=== PATIENT | female | born 1955 | race Hispanic/Latino ===

== ENCOUNTER 2017-07-22 08:23 | Observation (INO) | payer BC, SELFPAY ==
[2017-07-22] MEDS ORDERED: Fentanyl 100 MCG/2 ML VIAL ONE (09:58)
[2017-07-22 10:03] LABS: #Eosinphils 0.2 thou/uL (0.0-0.7); #Lymphocytes 1.6 thou/uL (1.20-3.40); #Monocytes 0.3 thou/uL (0.11-0.59); #Neutrophils 2.4 thou/uL (1.40-6.50); %Basophils 0.3 % (0.0-1.0); %Eosinophils 5.1 % (0.0-10.0); %Lymphocytes 35.3 % (21.0-51.0); %Monocytes 5.5 % (0.0-10.0); %Neutrophils 53.8 % (42.0-75.0); Hemoglobin 12.2 g/dL (12.0-16.0); Mean Corpuscular HGB CONC 32.7 g/dL (32.0-36.0); Mean Corpuscular Hemoglobin 27.9 pg (27.0-31.0); Mean Corpuscular Volume 85.3 fl (81.0-99.0); Mean Platelet Volume 6.6 fL (7.4-10.4); Platelet Count 147 thou/uL (130-400); RBC Distribution Width 13.4 % (11.5-14.5); Red Blood Cell (RBC) Count 4.37 mill/uL (4.20-5.40); White Blood Cell (WBC) Count 4.5 thou/uL (4.8-10.8)
--- NOTE | 2017-07-22 10:10 | RAD ---
UPRIGHT PORTABLE CHEST ONE VIEW: History: 62-year-old female with history of chest pain. The chest is tender to the touch. Comparison: 09-19-16 FINDINGS: Heart size is within normal limits. Atherosclerosis of the aorta. Some very mild increased linear and interstitial markings, stable. No confluent pneumonia, overt edema, or pleural effusion. IMPRESSION: Very mild stable chronic changes. No acute intrathoracic disease. POS: [facility]
[2017-07-22 10:15] LABS: Prothrombin Time 13.7 SEC (12.0-14.7)
[2017-07-22 10:17] LABS: D-Dimer Test 0.38 *mcg/mL (0.27-0.43)
[2017-07-22 10:22] LABS: ALT (SGPT) 17 U/L (8-55); AST (SGOT) 18 U/L (5-34); Alkaline Phosphatase 103 U/L (40-150); Anion Gap 8 mmol/L (10-20); BUN (Urea Nitrogen) 15 mg/dL (9.8-20.1); Bilirubin, Total 0.3 mg/dL (0.2-1.2); CK (CPK) 53 U/L (29-168); Calc. Creatinine Clearance 0 mL/min (70-130); Calcium 9.5 mg/dL (7.8-10.44); Carbon Dioxide 29 mmol/L (22-29); Chloride 105 mmol/L (98-107); Estimated GFR-MDRD 79; Globulin 3.3 g/dL (2.4-3.5); Glucose 100 mg/dL (70-105); Potassium 4.4 mmol/L (3.5-5.1); Protein, Total 7.3 g/dL (6.0-8.3); Sodium 138 mmol/L (136-145)
[2017-07-22 10:23] LABS: CKMB 1.4 ng/mL (0-6.6); Troponin I 0.012 ng/mL (< 0.028)
[2017-07-22] MEDS ORDERED: Nitroglycerin 0.4 MG TAB (25 Tab Bottle) ONE (12:52)
[2017-07-22] MEDS ORDERED: HumaLOG 300 UNITS/3 ML VIAL SC PRN (13:02)
[2017-07-22] MEDS ORDERED: Dextrose 5% in Water 1,000 ML IV PRN (13:02)
[2017-07-22] MEDS ORDERED: Dextrose 50% Abboject 50 ML SYRINGE SLOW IVP PRN (13:02)
[2017-07-22] MEDS ORDERED: Acetaminophen 325 MG TAB PO PRN (13:04)
[2017-07-22] MEDS ORDERED: Milk Of Magnesia 30 ML UDCUP PO PRN (13:04)
[2017-07-22 13:54] LABS: Troponin I 0.015 ng/mL (< 0.028)
[2017-07-22] MEDS ORDERED: Ketorolac Tromethamine 30 MG/ML VIAL IVP SCH (14:30)
[2017-07-22] MEDS: Nitroglycerin 0.4 MG TAB (25 Tab Bottle) PO PRN (15:04)
[2017-07-22] MEDS: Ketorolac Tromethamine 30 MG/ML VIAL IVP SCH ×2 (15:08→20:26)
[2017-07-22 15:14] VITALS: BMI 41.8
[2017-07-22 16:55] LABS: Troponin I 0.015 ng/mL (< 0.028)
[2017-07-22] MEDS ORDERED: glipiZIDE 5 MG TAB PO SCH (17:00)
[2017-07-22] MEDS ORDERED: metFORMIN 500 MG TAB PO SCH (17:00)
[2017-07-22] MEDS: Heparin 5,000 UNITS/ML VIAL SC SCH ×2 (17:01→20:32)
[2017-07-22] MEDS: Gabapentin 300 MG CAP PO SCH (20:31)
[2017-07-22] MEDS: Famotidine 20 MG TAB PO SCH (20:32)
[2017-07-22] MEDS: Docusate 100 MG CAP PO SCH (20:32)
--- NOTE | 2017-07-22 21:55 | HP ---
PRIMARY CARE PHYSICIAN: [facility]. PRESENTING COMPLAINT: Left arm pain. HISTORY OF PRESENT ILLNESS: A 62-year-old female with a past medical history of type 2 diabetes mellitus, hypertension, hyperlipidemia, GERD who presents to the emergency room with complaints of left arm pain, which started last night after she was sleeping. She rates it as a constant 10/10 pain, which started from the wrist and eventually involved her whole arm associated with numbness and tingling aggravated by movement and decreased temporarily by Motrin. She denies chest pain, but reports she has some "prickly" in her chest which she has had intermittently for the past 6 months and usually lasts about 5 minutes and dissipated spontaneously. She reports a stress test in the past as well as a cardiac catheterization by Dr. Jimenez, but does not know the results. There is no history of fevers, chills, nausea, vomiting, or diarrhea. She has no urinary symptoms. She denies shortness of breath, cough, or trauma to the arm. PAST MEDICAL HISTORY: Diabetes mellitus type 2, hypertension, hyperlipidemia, GERD. PAST SURGICAL HISTORY: Hysterectomy, left nephrectomy secondary to renal carcinoma. FAMILY HISTORY: Father had a history of hypertension, diabetes, and CABG. He from an [place]. Mother had a history of hypertension and diabetes as well. SOCIAL HISTORY: Does not drink alcohol, smoke cigarettes or use illicit drugs. ALLERGIES: MORPHINE. REVIEW OF SYSTEMS: General: Negative. HEENT: Negative. CVS: Negative. Respiratory: Negative. Abdomen: Negative. : Negative. Musculoskeletal: Per HPI, positive for musculoskeletal pain in left arm and wrist. Skin: Denies rashes or lesions. Neurologic: Negative. Hematologic: Negative. Allergy/immunology: Negative. PHYSICAL EXAMINATION: VITAL SIGNS: Stable. GENERAL: Not in mild distress from pain in the left arm. HEENT: Normocephalic, atraumatic. Not pale, anicteric. PERRLA, EOMI. Moist mucous membranes. NECK: Supple. Slight tenderness around the left shoulder from moving the neck. CARDIOVASCULAR: Regular rate and rhythm, S1 and S2 only. No murmurs, rubs, or gallops. RESPIRATORY: Vesicular breath sounds bilaterally. No wheezes or rales. ABDOMEN: Positive bowel sounds, nontender, nondistended, no organomegaly. MUSCULOSKELETAL: Tenderness on palpation of the left arm and forearm as well as the wrist, limited range of movement due to pain, reproducible chest pain on palpation. SKIN: Warm, dry, well-perfused. NEUROLOGIC: Alert and well oriented. No focal deficits. PSYCHIATRIC: Normal mood and affect. LABORATORY DATA: CBC is largely unremarkable. Chemistry unremarkable as well. Troponin trended and negative x3. EKG normal sinus rhythm. Chest x-ray no acute pathology. ASSESSMENT/PLAN: 1. Left shoulder pain, acute and left wrist pain: This is likely musculoskeletal pain and unlikely due to atypical presentation of acute coronary syndrome; however, due to her significant comorbidities, she will be ruled out. Monitor on tele. Nitroglycerin p.r.n. daily aspirin as well. We will consider Cardiology consult if pain does not dissipate with control of pain. We will also give Toradol and other anti-inflammatories to control pain and reassess. 2. Type 2 diabetes mellitus: She takes glipizide and metformin; however, her blood glucoses are running on the low side, so we will hold oral hypoglycemics. Check fingerstick glucose before meals and at bedtime and put on sliding scale insulin. 3. Hypertension, controlled and at goal, resume home regimen. 4. Hyperlipidemia. We will resume on statin. CODE STATUS: FULL CODE. MTDD
[2017-07-22] MEDS ORDERED: hydrALAZINE 20 MG/ML VIAL SLOW IVP PRN (23:55)
[2017-07-23] MEDS ORDERED: Ibuprofen 800 MG TAB PO PRN (03:00)
[2017-07-23 04:32] LABS: #Eosinphils 0.2 thou/uL (0.0-0.7); #Lymphocytes 1.7 thou/uL (1.20-3.40); #Monocytes 0.2 thou/uL (0.11-0.59); #Neutrophils 2.7 thou/uL (1.40-6.50); %Basophils 0.6 % (0.0-1.0); %Eosinophils 4.9 % (0.0-10.0); %Monocytes 4.6 % (0.0-10.0); Hemoglobin 11.8 g/dL (12.0-16.0); Mean Corpuscular HGB CONC 33.3 g/dL (32.0-36.0); Mean Corpuscular Hemoglobin 28.3 pg (27.0-31.0); Mean Corpuscular Volume 84.8 fl (81.0-99.0); Mean Platelet Volume 6.8 fL (7.4-10.4); Platelet Count 141 thou/uL (130-400); RBC Distribution Width 13.4 % (11.5-14.5); Red Blood Cell (RBC) Count 4.17 mill/uL (4.20-5.40); White Blood Cell (WBC) Count 4.8 thou/uL (4.8-10.8)
[2017-07-23 04:38] LABS: Hemoglobin A1c 5.1 % (4.0-6.0)
[2017-07-23 04:44] LABS: Anion Gap 7 mmol/L (10-20); BUN (Urea Nitrogen) 15 mg/dL (9.8-20.1); Calc. Creatinine Clearance 148 mL/min (70-130); Calcium 9.2 mg/dL (7.8-10.44); Carbon Dioxide 29 mmol/L (22-29); Cardiac Risk 4.2 (Less than 4.5); Chloride 105 mmol/L (98-107); Cholesterol 134 mg/dl (< 200 Desired); Estimated GFR-MDRD 81; Glucose 99 mg/dL (70-105); HDL Cholesterol 32 mg/dL (>60 Neg Risk); LDL Cholesterol, Calculated 75 mg/dL; Potassium 4.1 mmol/L (3.5-5.1); Sodium 137 mmol/L (136-145); Triglycerides 134 mg/dL (Less than 150)
[2017-07-23] MEDS: Nitroglycerin 0.4 MG TAB (25 Tab Bottle) PO PRN (06:32)
[2017-07-23] MEDS ORDERED: glipiZIDE 5 MG TAB PO SCH (07:30)
[2017-07-23 08:08] VITALS: BP 145/65; TEMP 98.2
[2017-07-23] MEDS: Gabapentin 300 MG CAP PO SCH (08:52)
[2017-07-23] MEDS: Famotidine 20 MG TAB PO SCH (08:52)
[2017-07-23] MEDS: Docusate 100 MG CAP PO SCH (08:52)
[2017-07-23] MEDS: Heparin 5,000 UNITS/ML VIAL SC SCH (08:53)
[2017-07-23] MEDS ORDERED: Lisinopril 20 MG TAB PO SCH (09:00)
[2017-07-23] MEDS ORDERED: Atorvastatin Calcium 40 MG TAB PO SCH (09:00)
--- NOTE | 2017-07-23 11:01 | DIS ---
DATE OF ADMISSION: 07/22/2017 DATE OF DISCHARGE: 07/23/2017 DISCHARGE DIAGNOSES: 1. Left shoulder pain, musculoskeletal in origin. 2. Diabetes mellitus type 2, stable. 3. Hypertension, stable. 4. Hyperlipidemia. 5. Degenerative joint disease. CONSULTATIONS: None. PERTINENT LABORATORY AND X-RAY FINDINGS: Basic metabolic profile within normal limits. Hemoglobin A 1c 5.1. Total cholesterol 134, triglycerides 134, HDL 32, LDL 75. CBC within normal limits. Portab le chest x-ray dated 07/22/2017 showed no acute cardiopulmonary process. HOSPITAL COURSE: Patient was observed on the telemetry unit after presenting with left shoulder pain with initial concern for possible anginal equivalent. Patient underwent serial troponins which were negative x3. Telemetry monitoring showed no evidence of acute arrhythmia or dysrhythmia and patient received anti-inflammatory medication including Motrin with relief of symptoms. No current evidence to suggest cardiac etiology of presentation and likely patient's pain related to musculoskeletal m[place] and degenerative joint disease. Current recommendations are for supportive management, over-the- counter anti-inflammatories and heat therapy. Overall, patient clinically stable and ready for disch arge on 07/23/2017. DISCHARGE MEDICATIONS: 1. Lipitor 40 mg p.o. daily. 2. Gabapentin 600 mg p.o. b.i.d. 3. Glipizide 10 mg p.o. q.a.m. and 5 mg p.o. at bedtime. 4. Zestril 20 mg p.o. daily. 5. Metformin 1000 mg p.o. b.i.d. 6. Ranitidine 150 mg p.o. b.i.d. 7. Zoloft 100 mg p.o. daily. FOLLOWUP: Patient will follow up with [facility] within 7 days. CONDITION ON DISCHARGE: Stable. ACTIVITY: Ad venkatesh. DIET: Heart healthy and ADA. CODE STATUS: FULL. DISPOSITION: Home, 07/23/2017.
== END 2017-07-23 10:39 | disposition home or self-care (01) ==
LOC: ERS 08:23 → 2SW 12:55
PROVIDERS: ADMIT Internal Medicine; ATTEND Internal Medicine
DX: M25.512 Pain in left shoulder (principal); M25.532 Pain in left wrist; E11.9 Type 2 diabetes mellitus without complications; I10 Essential (primary) hypertension; E78.5 Hyperlipidemia, unspecified; M19.90 Unspecified osteoarthritis, unspecified site; K21.9 Gastro-esophageal reflux disease without esophagitis; Z88.5 Allergy status to narcotic agent; Z82.49 Family history of ischemic heart disease and other diseases of the circulatory system; Z83.3 Family history of diabetes mellitus
CPT/HCPCS: 36415; 36416; 71045; 80048; 80053; 80061; 82553; 83036; 84484; 85025; 85379; 85610; 93005; 94760; 96361; 96374; 96375; 96376; G0378; J0360; J1644; J1885; J3010

== ENCOUNTER 2018-04-21 11:37 | Outpatient (CLI) | payer OTHER ==
--- NOTE | 2018-04-21 13:22 | RAD ---
LUMBAR SPINE TWO VIEWS: History: Low back pain. Comparison: 04-18-11 FINDINGS: There are five lumbar type vertebrae. Pedicles are intact. Vertebral body heights are maintained. Gra de I spondylolisthesis at the L4-5 level has progressed slightly since the previous exam. Bulky osteo phytosis throughout the vertebral bodies and facets. Posterior elements are absent at the L4 level. N o acute fracture or dislocation. IMPRESSION: 1. Prominent degenerative changes lumbar spine. No evidence of compression fracture. 2. Presumed operative posterior decompression at the L4 level. POS: [facility]
== END 2018-04-21 11:38 | disposition home or self-care (01) ==
LOC: BICRAD 11:37
PROVIDERS: ATTEND Internal Medicine
DX: Z02.71 Encounter for disability determination (principal); M47.816 Spondylosis without myelopathy or radiculopathy, lumbar region
CPT/HCPCS: 72100

== ENCOUNTER 2018-10-05 17:06 | Emergency (ER) | payer SELFPAY ==
--- NOTE | 2018-10-05 17:59 | RAD ---
XR Chest Pa Lat STANDARD History: [Cough] Comparison: Radiograph July 22, 2017 Findings: Some scarring in the lingula. No pneumothorax. No effusion. No airspace consolidation. No a cute osseous abnormality. Advanced degenerative changes of the right glenohumeral joint in both acromioclavicular joints. Impression: Chronic findings. No acute intrathoracic abnormality.
[2018-10-05] MEDS ORDERED: Ketorolac Tromethamine 30 MG/ML VIAL ONE (18:41)
[2018-10-05] MEDS ORDERED: Dexamethasone 4 MG TAB ONE (18:41)
== END 2018-10-05 20:01 | disposition home or self-care (01) ==
LOC: ERS 17:06
DX: J20.9 Acute bronchitis, unspecified (principal); E11.9 Type 2 diabetes mellitus without complications; I10 Essential (primary) hypertension; Z85.528 Personal history of other malignant neoplasm of kidney; F41.9 Anxiety disorder, unspecified; F32.9 Major depressive disorder, single episode, unspecified; Z87.891 Personal history of nicotine dependence
CPT/HCPCS: 71046; 94640; 96372; J1885; J7620; J8540

== ENCOUNTER 2018-10-25 09:23 | Emergency (ER) | payer SELFPAY ==
[2018-10-25] MEDS ORDERED: Lorazepam 2 MG/ML VIAL ONE (09:38)
[2018-10-25 09:45] LABS: #Eosinphils 0.2 thou/uL (0.0-0.7); #Lymphocytes 1.7 thou/uL (1.20-3.40); #Monocytes 0.2 thou/uL (0.11-0.59); #Neutrophils 3.2 thou/uL (1.40-6.50); %Basophils 0.1 % (0.0-1.0); %Eosinophils 3.5 % (0.0-10.0); %Lymphocytes 32.3 % (21.0-51.0); %Monocytes 3.7 % (0.0-10.0); %Neutrophils 60.4 % (42.0-75.0); Hemoglobin 12.1 g/dL (12.0-16.0); Mean Corpuscular HGB CONC 33.7 g/dL (32.0-36.0); Mean Corpuscular Hemoglobin 27.9 pg (27.0-31.0); Mean Corpuscular Volume 82.9 fL (78.0-98.0); Mean Platelet Volume 7.6 fL (7.4-10.4); Platelet Count 146 thou/uL (130-400); RBC Distribution Width 14.1 % (11.5-14.5); Red Blood Cell (RBC) Count 4.34 mill/uL (4.20-5.40); White Blood Cell (WBC) Count 5.3 thou/uL (4.8-10.8)
--- NOTE | 2018-10-25 10:00 | RAD ---
PORTABLE CHEST 1 VIEW: DATE: 10/25/2018. TIME: 9:44 a.m. HISTORY: Dyspnea. FINDINGS: Comparison is made with the exam of 10/05/2018. The heart size is normal. The lungs are expanded without focal areas of consolidation, pneumothorace s, or pleural effusions. Minimal chronic changes are again seen. IMPRESSION: No acute process. POS: [facility]
[2018-10-25 10:07] LABS: ALT (SGPT) 40 U/L (8-55); AST (SGOT) 31 U/L (5-34); Albumin 3.9 g/dL (3.4-4.8); Alkaline Phosphatase 130 U/L (40-150); Anion Gap 15 mmol/L (10-20); BUN (Urea Nitrogen) 10 mg/dL (9.8-20.1); Bilirubin, Total 0.7 mg/dL (0.2-1.2); Calc. Creatinine Clearance 0 mL/min (70-130); Calcium 9.7 mg/dL (7.8-10.44); Carbon Dioxide 22 mmol/L (23-31); Chloride 102 mmol/L (98-107); Estimated GFR-MDRD 71; Globulin 3.6 g/dL (2.4-3.5); Glucose 294 mg/dL (80-115); Potassium 4.2 mmol/L (3.5-5.1); Protein, Total 7.5 g/dL (6.0-8.3); Sodium 135 mmol/L (136-145)
--- NOTE | 2018-10-25 10:32 | CT ---
CT arteriogram chest with IV contrast and 3-D imaging HISTORY: Chest pain. Dyspnea. COMPARISON: 09/20/2016. FINDINGS: There is good contrast opacification pulmonary arteries and thoracic aorta with normal bran lexi of the great vessels at the aortic arch. Very mild patchy areas of groundglass opacity at the dependent portion of each lung are similar in appearance to the previous exam and may reflect atelect asis. No lobar consolidation, pleural fluid, or mediastinal adenopathy. Mild calcification within the aortic arch. Small hiatal hernia. IMPRESSION: No CT evidence of pulmonary embolus
[2018-10-25] MEDS ORDERED: Ketorolac Tromethamine 30 MG/ML VIAL ONE (10:44)
[2018-10-25] MEDS ORDERED: ISOVUE-370 76%-LOCM 1 ML ONE (16:10)
== END 2018-10-25 11:01 | disposition home or self-care (01) ==
LOC: ERS 09:23
DX: R06.02 Shortness of breath (principal); R51 Headache; E11.9 Type 2 diabetes mellitus without complications; I10 Essential (primary) hypertension; F41.9 Anxiety disorder, unspecified; F32.9 Major depressive disorder, single episode, unspecified; Z87.891 Personal history of nicotine dependence; Z79.84 Long term (current) use of oral hypoglycemic drugs; Z79.899 Other long term (current) drug therapy
CPT/HCPCS: 71045; 71275; 80053; 83880; 84484; 85025; 85379; 93005; 96374; 96375; J1885; J2060; Q9966

== ENCOUNTER 2019-01-03 17:44 | Emergency (ER) | payer SELFPAY ==
[2019-01-03 18:26] LABS: #Eosinphils 0.2 thou/uL (0.0-0.7); #Lymphocytes 2.1 thou/uL (1.20-3.40); #Monocytes 0.4 thou/uL (0.11-0.59); #Neutrophils 4.7 thou/uL (1.40-6.50); %Basophils 0.4 % (0.0-1.0); %Eosinophils 2.8 % (0.0-10.0); %Lymphocytes 27.8 % (21.0-51.0); %Monocytes 5.1 % (0.0-10.0); %Neutrophils 63.9 % (42.0-75.0); Hemoglobin 12.8 g/dL (12.0-16.0); Mean Corpuscular HGB CONC 33.1 g/dL (32.0-36.0); Mean Corpuscular Hemoglobin 26.7 pg (27.0-31.0); Mean Corpuscular Volume 80.6 fL (78.0-98.0); Mean Platelet Volume 6.9 fL (7.4-10.4); Platelet Count 159 thou/uL (130-400); RBC Distribution Width 13.4 % (11.5-14.5); Red Blood Cell (RBC) Count 4.81 mill/uL (4.20-5.40); White Blood Cell (WBC) Count 7.4 thou/uL (4.8-10.8)
[2019-01-03 18:53] LABS: ALT (SGPT) 29 U/L (8-55); AST (SGOT) 23 U/L (5-34); Albumin 3.8 g/dL (3.4-4.8); Alkaline Phosphatase 144 U/L (40-150); Anion Gap 9 mmol/L (10-20); BUN (Urea Nitrogen) 13 mg/dL (9.8-20.1); Bilirubin, Total 0.4 mg/dL (0.2-1.2); Calc. Creatinine Clearance 0 mL/min (70-130); Calcium 9.5 mg/dL (7.8-10.44); Carbon Dioxide 27 mmol/L (23-31); Chloride 99 mmol/L (98-107); Estimated GFR-MDRD 72; Globulin 3.2 g/dL (2.4-3.5); Glucose 333 mg/dL (80-115); Lipase 29 U/L (8-78); Potassium 4.2 mmol/L (3.5-5.1); Sodium 131 mmol/L (136-145)
[2019-01-03 19:02] LABS: Bilirubin Negative (Negative); Blood, Urine Negative (Negative); Clarity Clear (Clear); Glucose, Urine (Dipstick) Greater than 1000 mg/dL (Negative); Leukocyte 25 Leu/uL (Negative); Nitrite Negative (Negative); Protein, Urine (Dipstick) Negative (Neg-Trace); RBC/HPF 0-3 HPF (0-3); Squamous Epithelial 0-3 HPF (0-3); Urobilinogen Normal mg/dL (Less than 2); WBC/HPF 0-3 HPF (0-3)
[2019-01-03 19:17] LABS: Bacteria/HPF 1+ HPF (None Seen)
[2019-01-03] MEDS ORDERED: HYDROcodone/Acetaminophen 5/325 mg Tablet ONE (20:35)
[2019-01-03] MEDS ORDERED: Ketorolac Tromethamine 60 MG/2 ML VIAL ONE (20:35)
--- NOTE | 2019-01-03 21:36 | CT ---
CT ABDOMEN AND PELVIS WITHOUT IV CONTRAST: Indications: Left flank pain. Comparison: 10-03-15 CT abdomen/pelvis. FINDINGS: Lung bases appear clear. Liver, spleen, and pancreas unremarkable. Stomach and duodenum unremarkable. Adrenal glands normal. Patient is post right nephrectomy which is previously described. Left kidney is unremarkable. No hydr onephrosis. Left ureter normal. Urinary bladder unremarkable. Small bowel loops normal caliber. Appendix appears normal. Colon unremarkable. Aorta normal caliber. No adenopathy, mass or free fluid. IMPRESSION: No acute process identified. POS: [facility]
== END 2019-01-03 21:12 | disposition home or self-care (01) ==
LOC: ERS 17:44
DX: R10.9 Unspecified abdominal pain (principal); E11.9 Type 2 diabetes mellitus without complications; I10 Essential (primary) hypertension; F41.9 Anxiety disorder, unspecified; F32.9 Major depressive disorder, single episode, unspecified; Z87.891 Personal history of nicotine dependence; Z79.899 Other long term (current) drug therapy; Z79.84 Long term (current) use of oral hypoglycemic drugs
CPT/HCPCS: 36415; 74176; 80053; 81003; 81015; 83690; 85025; 96372; J1885

== ENCOUNTER 2019-03-17 17:11 | Emergency (ER) | payer SELFPAY ==
[2019-03-17 18:09] LABS: #Basophils 0.1 thou/uL (0.0-0.2); #Eosinphils 0.2 thou/uL (0.0-0.7); #Lymphocytes 2.2 thou/uL (1.20-3.40); #Monocytes 0.3 thou/uL (0.11-0.59); #Neutrophils 4.1 thou/uL (1.40-6.50); %Basophils 0.9 % (0.0-1.0); %Eosinophils 2.4 % (0.0-10.0); %Lymphocytes 32.9 % (21.0-51.0); %Monocytes 4.2 % (0.0-10.0); %Neutrophils 59.7 % (42.0-75.0); Hemoglobin 13.7 g/dL (12.0-16.0); Mean Corpuscular HGB CONC 34.1 g/dL (32.0-36.0); Mean Corpuscular Hemoglobin 27.7 pg (27.0-31.0); Mean Platelet Volume 6.9 fL (7.4-10.4); Platelet Count 155 thou/uL (130-400); RBC Distribution Width 13.7 % (11.5-14.5); Red Blood Cell (RBC) Count 4.94 mill/uL (4.20-5.40); White Blood Cell (WBC) Count 6.8 thou/uL (4.8-10.8)
[2019-03-17 18:30] LABS: ALT (SGPT) 33 U/L (8-55); AST (SGOT) 22 U/L (5-34); Albumin 3.9 g/dL (3.4-4.8); Alkaline Phosphatase 153 U/L (40-110); Anion Gap 13 mmol/L (10-20); BUN (Urea Nitrogen) 12 mg/dL (9.8-20.1); Bilirubin, Total 0.5 mg/dL (0.2-1.2); Calc. Creatinine Clearance 0 mL/min (70-130); Calcium 9.6 mg/dL (7.8-10.44); Carbon Dioxide 28 mmol/L (23-31); Chloride 100 mmol/L (98-107); Estimated GFR-MDRD 69; Globulin 3.4 g/dL (2.4-3.5); Glucose 313 mg/dL (80-115); Potassium 4.6 mmol/L (3.5-5.1); Protein, Total 7.3 g/dL (6.0-8.3); Sodium 136 mmol/L (136-145)
[2019-03-17] MEDS ORDERED: HYDROcodone/Acetaminophen 10/325 mg Tablet ONE (18:51)
[2019-03-17] MEDS ORDERED: Ketorolac Tromethamine 30 MG/ML VIAL ONE (18:51)
--- NOTE | 2019-03-17 19:05 | RAD ---
XR Knee Rt 4 View STANDARD: 03/17/2019 6:42 PM CLINICAL INDICATION: Pain COMPARISON: 10/16/2009 FINDINGS: Fracture:No fracture. Arthropathy:Mild to moderate osteoarthritis. Mild joint capsular distention. IMPRESSION: 1. No acute osseous abnormality. 2. Mild joint capsular distention.
--- NOTE | 2019-03-17 19:35 | ULT ---
EXAM: Right lower extremity venous duplex: Deep veins evaluated with color Doppler, spectral analysis, and compression. INDICATIONS: Right lower extremity pain. FINDINGS: Deep veins interrogated include common femoral vein, femoral vein, popliteal vein, and post erior tibial vein. These veins show normal compression and blood flow. No evidence of DVT. IMPRESSION: Negative Right venous duplex exam.
== END 2019-03-17 20:37 | disposition home or self-care (01) ==
LOC: ERS 17:11
DX: M17.11 Unilateral primary osteoarthritis, right knee (principal); E11.40 Type 2 diabetes mellitus with diabetic neuropathy, unspecified; I10 Essential (primary) hypertension; F41.9 Anxiety disorder, unspecified; F32.9 Major depressive disorder, single episode, unspecified; Z87.891 Personal history of nicotine dependence; Z79.899 Other long term (current) drug therapy; Z79.84 Long term (current) use of oral hypoglycemic drugs
CPT/HCPCS: 36415; 80053; 85025; 85379; 96372; J1885

== ENCOUNTER 2019-05-15 11:39 | Emergency (ER) | payer SELFPAY ==
--- NOTE | 2019-05-15 13:43 | RAD ---
RIGHT KNEE 4 VIEWS: Date: 05/15/19 COMPARISON: 03/17/19. HISTORY: Knee pain. FINDINGS: There is mild medial and lateral compartment narrowing with associated osteophyte formation of the me dial and lateral femoral condyle and tibial plateau. No displaced fracture or dislocation. Small, non specific knee joint effusion. IMPRESSION: Small, nonspecific knee joint effusion with degenerative joint disease. No acute fracture or dislocat ion. If the study was performed in the setting of trauma and there is clinical concern for radio-occu lt fracture, follow-up imaging is advised. Of note, knee joint effusion is similar when compared to t 03/17/19 examination. POS: [facility]
== END 2019-05-15 13:58 | disposition home or self-care (01) ==
LOC: ERS 11:39
DX: S83.91XA Sprain of unspecified site of right knee, initial encounter (principal); E11.9 Type 2 diabetes mellitus without complications; I10 Essential (primary) hypertension; F41.9 Anxiety disorder, unspecified; F32.9 Major depressive disorder, single episode, unspecified; Z87.891 Personal history of nicotine dependence; Z79.899 Other long term (current) drug therapy; X50.9XXA Other and unspecified overexertion or strenuous movements or postures, initial encounter

== ENCOUNTER 2020-05-25 12:19 | Emergency (ER) | payer SELFPAY ==
[2020-05-25 22:11] LABS: SARS-CoV-2 MS2 Positive; SARS-CoV-2 N Gene Negative; SARS-CoV-2 S Gene Negative; SARS-CoV-2 by NAA Not Detected (NotDetected); SARS-CoV-2 orf1ab Negative
== END 2020-05-25 13:00 | disposition home or self-care (01) ==
LOC: ERS 12:19
DX: Z20.828 Contact with and (suspected) exposure to other viral communicable diseases (principal); E11.9 Type 2 diabetes mellitus without complications; I10 Essential (primary) hypertension; F41.9 Anxiety disorder, unspecified; F32.9 Major depressive disorder, single episode, unspecified; Z87.891 Personal history of nicotine dependence; Z79.899 Other long term (current) drug therapy
CPT/HCPCS: 87635; 99283; U0003

== ENCOUNTER 2020-06-09 15:31 | Emergency (ER) | payer SELFPAY ==
[2020-06-09 23:51] LABS: SARS-CoV-2 MS2 Positive; SARS-CoV-2 N Gene Positive; SARS-CoV-2 S Gene Positive; SARS-CoV-2 by NAA DETECTED (NotDetected); SARS-CoV-2 orf1ab Positive
== END 2020-06-09 16:49 | disposition home or self-care (01) ==
LOC: ERS 15:31
DX: U07.1 COVID-19 (principal); E11.9 Type 2 diabetes mellitus without complications; I10 Essential (primary) hypertension; Z87.891 Personal history of nicotine dependence; Z79.899 Other long term (current) drug therapy; Z79.84 Long term (current) use of oral hypoglycemic drugs
CPT/HCPCS: 87635; 99283; U0003

== ENCOUNTER 2020-08-01 07:54 | Outpatient (CLI) | payer MEDICARE ==
--- NOTE | 2020-08-01 09:04 | BD ---
DEXA BONE DENSITY STUDY: Date: 08/01/2020 HISTORY: Postmenopausal. FINDINGS: Femoral Neck: BMD (g/cm2) Right 1.034 T-Score: +1.7 Total 1.038 T-Score: +0.8 Left 0.767 T-Score: -0.7 Total 0.986 T-Score: +0.4 IMPRESSION: Normal bone mineral density of the right and left femoral necks. POS: [facility]
--- NOTE | 2020-08-01 09:06 | MMO ---
Bilateral MAMMO Bilat Screen [facility]. CLINICAL HISTORY: Patient is 65 years old and is seen for screening. The patient has the following family history of breast cancer: female cousin. The patient has a history of kidney cancer in 2009. VIEWS: The views performed were: bilateral craniocaudal with tomosynthesis; bilateral mediolateral oblique with tomosynthesis; and right craniocaudal. FILMS COMPARED: The present examination has been compared to prior imaging studies performed at 03/13/2014 and 09/19/2016, and at [facility] on 07/14/2018. This study has been interpreted with the assistance of computer-aided detection. MAMMOGRAM FINDINGS: The breasts are almost entirely fat. There are stable benign appearing calcifications seen in both breasts. There are no suspicious masses, suspicious calcifications, or new areas of architectural distortion. IMPRESSION: THERE IS NO MAMMOGRAPHIC EVIDENCE OF MALIGNANCY. A ROUTINE FOLLOW-UP MAMMOGRAM IN 1 YEAR IS RECOMMENDED. THE RESULTS OF THIS EXAM WERE SENT TO THE PATIENT. ACR BI-RADS Category 2 - Benign finding MAMMOGRAPHY NOTE: 1. A negative mammogram report should not delay a biopsy if a dominant of clinically suspicious mass is present. 2. Approximately 10% to 15% of breast cancers are not detected by mammography. 3. Adenosis and dense breasts may obscure an underlying neoplasm. Reported by: ODELL CARMICHAEL MD Electonically Signed: [id number]
== END 2020-08-01 07:55 | disposition home or self-care (01) ==
LOC: BICMAMMO 07:54
PROVIDERS: ATTEND Family Medicine
DX: Z12.31 Encounter for screening mammogram for malignant neoplasm of breast (principal); N95.9 Unspecified menopausal and perimenopausal disorder; Z80.3 Family history of malignant neoplasm of breast
CPT/HCPCS: 77063; 77067; 77080

== ENCOUNTER 2021-06-30 07:37 | Observation (INO) | payer MEDICARE ==
[2021-06-30 08:45] LABS: #Eosinphils 0.2 thou/uL (0.0-0.7); #Lymphocytes 2.3 thou/uL (1.20-3.40); #Monocytes 0.3 thou/uL (0.11-0.59); #Neutrophils 4.9 thou/uL (1.40-6.50); %Basophils 0.6 % (0.0-1.0); %Eosinophils 2.5 % (0.0-10.0); %Lymphocytes 30.3 % (21.0-51.0); %Monocytes 3.3 % (0.0-10.0); %Neutrophils 63.3 % (42.0-75.0); Hemoglobin 12.9 g/dL (12.0-16.0); Mean Corpuscular HGB CONC 32.7 g/dL (32.0-36.0); Mean Corpuscular Hemoglobin 28.3 pg (27.0-31.0); Mean Corpuscular Volume 86.4 fL (78.0-98.0); Mean Platelet Volume 6.4 fL (7.4-10.4); Platelet Count 202 thou/uL (130-400); RBC Distribution Width 13.7 % (11.5-14.5); Red Blood Cell (RBC) Count 4.58 mill/uL (4.20-5.40); White Blood Cell (WBC) Count 7.7 thou/uL (4.8-10.8)
[2021-06-30 09:03] LABS: ALT (SGPT) 40 U/L (8-55); AST (SGOT) 27 U/L (5-34); Albumin 4.1 g/dL (3.4-4.8); Alkaline Phosphatase 106 U/L (40-110); Anion Gap 17 mmol/L (10-20); BUN (Urea Nitrogen) 13 mg/dL (9.8-20.1); Bilirubin, Total 0.6 mg/dL (0.2-1.2); Calc. Creatinine Clearance 0 mL/min (70-130); Calcium 9.6 mg/dL (7.8-10.44); Carbon Dioxide 22 mmol/L (23-31); Chloride 102 mmol/L (98-107); Globulin 3.7 g/dL (2.4-3.5); Glucose 147 mg/dL (80-115); Potassium 3.9 mmol/L (3.5-5.1); Protein, Total 7.8 g/dL (5.8-8.1); Sodium 137 mmol/L (136-145)
[2021-06-30] MEDS ORDERED: Nitroglycerin 2% Ointment 1 INCH/1 GM Packet ONE (10:09)
[2021-06-30] MEDS ORDERED: Aspirin Chewable 81 MG TAB ONE (10:09)
[2021-06-30] MEDS ORDERED: HumaLOG 300 UNITS/3 ML VIAL SC PRN (11:22)
[2021-06-30] MEDS ORDERED: Ondansetron PF 4 MG/2 ML Vial IVP PRN (11:22)
[2021-06-30] MEDS ORDERED: Dextrose 50% Abboject 50 ML SYRINGE SLOW IVP PRN (11:22)
[2021-06-30] MEDS ORDERED: Acetaminophen 325 MG TAB PO PRN (11:22)
[2021-06-30] MEDS ORDERED: Dextrose 5% in Water 1,000 ML IV PRN (11:22)
[2021-06-30] MEDS ORDERED: Nitroglycerin 0.4 MG TAB (25 Tab Bottle) SL PRN (11:25)
[2021-06-30] MEDS ORDERED: Enoxaparin Sodium 40 MG/0.4 ML SYRINGE SC SCH (11:30)
[2021-06-30 12:55] LABS: Bilirubin Negative (Negative); Blood, Urine Negative (Negative); Clarity Clear (Clear); Glucose, Urine (Dipstick) Normal (Negative); Ketone, Urine Negative (Negative); Leukocyte Negative Leu/uL (Negative); Nitrite Negative (Negative); Protein, Urine (Dipstick) Negative (Neg-Trace); Specific Gravity, Urine 1.011 (1.002-1.036); Urobilinogen Normal mg/dL (Less than 2)
[2021-06-30 13:26] LABS: SARS-CoV-2 NAA Rapid Test Not Detected (NotDetected)
[2021-06-30 15:25] LABS: Troponin I Less than 0.010 ng/mL (< 0.028)
[2021-06-30] MEDS ORDERED: glipiZIDE 5 MG TAB PO SCH (17:00)
[2021-06-30 18:49] VITALS: BMI 42.3
[2021-06-30] MEDS: metFORMIN 500 MG TAB PO SCH (19:42)
[2021-06-30] MEDS ORDERED: Non-Formulary Item 1 EACH (Ranitidine Hcl [Ranitidine Hcl] 150 MG Tablet) PO SCH (21:00)
[2021-06-30] MEDS: Famotidine 20 MG TAB PO SCH (21:16)
[2021-06-30] MEDS: Gabapentin 300 MG CAP PO SCH (21:17)
[2021-07-01 05:00] LABS: #Eosinphils 0.2 thou/uL (0.0-0.7); #Lymphocytes 2.3 thou/uL (1.20-3.40); #Monocytes 0.4 thou/uL (0.11-0.59); #Neutrophils 3.9 thou/uL (1.40-6.50); %Basophils 0.7 % (0.0-1.0); %Eosinophils 3.6 % (0.0-10.0); %Lymphocytes 33.8 % (21.0-51.0); %Monocytes 5.6 % (0.0-10.0); %Neutrophils 56.3 % (42.0-75.0); Hemoglobin 11.6 g/dL (12.0-16.0); Mean Corpuscular HGB CONC 34.2 g/dL (32.0-36.0); Mean Corpuscular Hemoglobin 29.7 pg (27.0-31.0); Mean Corpuscular Volume 86.9 fL (78.0-98.0); Mean Platelet Volume 6.5 fL (7.4-10.4); Platelet Count 172 thou/uL (130-400); RBC Distribution Width 13.7 % (11.5-14.5); Red Blood Cell (RBC) Count 3.92 mill/uL (4.20-5.40); White Blood Cell (WBC) Count 6.9 thou/uL (4.8-10.8)
[2021-07-01 05:15] LABS: Anion Gap 10 mmol/L (10-20); BUN (Urea Nitrogen) 14 mg/dL (9.8-20.1); Calc. Creatinine Clearance 142 mL/min (70-130); Calcium 9.3 mg/dL (7.8-10.44); Carbon Dioxide 28 mmol/L (23-31); Chloride 104 mmol/L (98-107); Glucose 149 mg/dL (80-115); Potassium 4.2 mmol/L (3.5-5.1); Sodium 138 mmol/L (136-145)
[2021-07-01] MEDS ORDERED: glipiZIDE 5 MG TAB PO SCH (08:00)
[2021-07-01] MEDS ORDERED: Hydrochlorothiazide 25 MG TAB PO SCH (09:00)
[2021-07-01] MEDS ORDERED: Enoxaparin Sodium 40 MG/0.4 ML SYRINGE SC SCH (09:00)
[2021-07-01] MEDS ORDERED: Aspirin 81 mg Enteric Coated Tablet PO SCH (09:00)
[2021-07-01] MEDS ORDERED: Atorvastatin Calcium 40 MG TAB PO SCH (09:00)
[2021-07-01] MEDS ORDERED: Lisinopril 20 MG TAB PO SCH (09:00)
[2021-07-01] MEDS ORDERED: Prevnar 13-Val Conj/PF 0.5 ML SYRINGE IM ONE (09:00)
[2021-07-01] MEDS ORDERED: FLU VACC QS2021-22(6MOS UP)/PF 60 MCG/0.5 ML SYRINGE IM ONE (09:00)
[2021-07-01] MEDS: metFORMIN 500 MG TAB PO SCH (09:07)
[2021-07-01] MEDS: Gabapentin 300 MG CAP PO SCH (09:09)
[2021-07-01] MEDS: Famotidine 20 MG TAB PO SCH (09:10)
[2021-07-01 13:35] VITALS: BP 147/69; TEMP 97.8
== END 2021-07-01 15:10 | disposition home or self-care (01) ==
LOC: ERS 07:37 → INTOOBSV 09:59 → ERHOLD 09:59 → 2NO 15:47
PROVIDERS: ADMIT Internal Medicine; ATTEND Internal Medicine
DX: I16.0 Hypertensive urgency (principal); R07.89 Other chest pain; I11.9 Hypertensive heart disease without heart failure; I08.1 Rheumatic disorders of both mitral and tricuspid valves; E11.9 Type 2 diabetes mellitus without complications; E78.5 Hyperlipidemia, unspecified; K21.9 Gastro-esophageal reflux disease without esophagitis; E66.9 Obesity, unspecified; Z68.41 Body mass index [BMI] 40.0-44.9, adult; Z87.891 Personal history of nicotine dependence; Z79.84 Long term (current) use of oral hypoglycemic drugs; Z79.899 Other long term (current) drug therapy; Z88.5 Allergy status to narcotic agent; Z90.5 Acquired absence of kidney; Z20.822 Contact with and (suspected) exposure to COVID-19
CPT/HCPCS: 36415; 36416; 71045; 80048; 80053; 81003; 83690; 84484; 85025; 93005; 93306; 94760; J1650; U0002

== ENCOUNTER 2021-08-02 08:58 | Outpatient (CLI) | payer MEDICARE | END 2021-08-02 08:59 | disposition home or self-care (01) | LOC: BICMAMMO 08:58 | PROVIDERS: ATTEND Family Medicine | DX: Z12.31 Encounter for screening mammogram for malignant neoplasm of breast (principal); Z80.3 Family history of malignant neoplasm of breast; Z85.528 Personal history of other malignant neoplasm of kidney | CPT/HCPCS: 77063; 77067 ==

== ENCOUNTER 2022-06-28 16:30 | Emergency (ER) | payer OTHER, MEDICARE ==
[2022-06-28] MEDS ORDERED: Ketorolac Tromethamine 30 MG/ML VIAL ONE (17:30)
== END 2022-06-28 18:47 | disposition home or self-care (01) ==
LOC: ERS 16:30
DX: M17.11 Unilateral primary osteoarthritis, right knee (principal); M19.011 Primary osteoarthritis, right shoulder; E11.9 Type 2 diabetes mellitus without complications; I10 Essential (primary) hypertension; W01.0XXA Fall on same level from slipping, tripping and stumbling without subsequent striking against object, initial encounter; Y93.01 Activity, walking, marching and hiking; Z79.899 Other long term (current) drug therapy; Z79.82 Long term (current) use of aspirin; Z79.84 Long term (current) use of oral hypoglycemic drugs
CPT/HCPCS: 70450; 72125; 96372; J1885

== ENCOUNTER 2022-07-18 11:19 | Outpatient (CLI) | payer MEDICARE | END 2022-07-18 11:20 | disposition home or self-care (01) | LOC: BICRAD 11:19 | PROVIDERS: ATTEND Family Medicine | DX: M79.601 Pain in right arm (principal); M25.511 Pain in right shoulder; M54.2 Cervicalgia; M47.812 Spondylosis without myelopathy or radiculopathy, cervical region; M19.011 Primary osteoarthritis, right shoulder | CPT/HCPCS: 72040 ==

== ENCOUNTER 2022-08-25 18:09 | Emergency (ER) | payer MEDICARE ==
[2022-08-25 19:33] LABS: #Basophils 0.1 thou/uL (0.0-0.2); #Eosinphils 0.3 thou/uL (0.0-0.7); #Lymphocytes 2.5 thou/uL (1.20-3.40); #Monocytes 0.4 thou/uL (0.11-0.59); #Neutrophils 4.9 thou/uL (1.40-6.50); %Basophils 0.9 % (0.0-1.0); %Eosinophils 3.3 % (0.0-10.0); %Lymphocytes 30.4 % (21.0-51.0); %Monocytes 4.7 % (0.0-10.0); %Neutrophils 60.7 % (42.0-75.0); Mean Corpuscular Hemoglobin 29.3 pg (27.0-31.0); Mean Corpuscular Volume 86.1 fl (78.0-98.0); Mean Platelet Volume 6.5 fL (7.4-10.4); Platelet Count 187 10x3/uL (130-400); RBC Distribution Width 13.7 % (11.5-14.5); Red Blood Cell (RBC) Count 4.09 mill/uL (4.20-5.40); White Blood Cell (WBC) Count 8.1 10x3/uL (4.8-10.8)
[2022-08-25 19:56] LABS: ALT (SGPT) 25 U/L (8-55); AST (SGOT) 23 U/L (5-34); Alkaline Phosphatase 97 U/L (40-110); Anion Gap 11 mmol/L (10-20); BUN (Urea Nitrogen) 15 mg/dL (9.8-20.1); Bilirubin, Total 0.3 mg/dL (0.2-1.2); Calc. Creatinine Clearance 0 mL/min (70-130); Calcium 9.5 mg/dL (7.8-10.44); Carbon Dioxide 28 mmol/L (23-31); Chloride 103 mmol/L (98-107); Estimated GFR 90; Globulin 3.2 g/dL (2.4-3.5); Glucose 122 mg/dL (80-115); Lipase 60 U/L (8-78); Protein, Total 7.2 g/dL (5.8-8.1); Sodium 138 mmol/L (136-145)
[2022-08-25] MEDS ORDERED: Ketorolac Tromethamine 30 MG/ML VIAL ONE (20:40)
[2022-08-25] MEDS ORDERED: Acetaminophen/Codeine 30-300mg Tablet ONE (20:40)
[2022-08-25 20:52] LABS: Bilirubin Negative (Negative); Blood, Urine Negative (Negative); Clarity Clear (Clear); Glucose, Urine (Dipstick) Normal (Negative); Ketone, Urine Negative (Negative); Leukocyte Negative Leu/uL (Negative); Nitrite Negative (Negative); Protein, Urine (Dipstick) Negative (Neg-Trace); Specific Gravity, Urine 1.012 (1.002-1.036); Urobilinogen Normal mg/dL (Less than 2); pH, Urine 6.5 (5.0-9.0)
[2022-08-25] MEDS ORDERED: FENTANYL 50 MCG/ML 1 ML VIAL ONE (22:26)
== END 2022-08-25 23:49 | disposition home or self-care (01) ==
LOC: ERS 18:09
DX: M19.012 Primary osteoarthritis, left shoulder (principal); R07.89 Other chest pain; E11.9 Type 2 diabetes mellitus without complications; I10 Essential (primary) hypertension; Z79.82 Long term (current) use of aspirin; Z79.84 Long term (current) use of oral hypoglycemic drugs; Z79.899 Other long term (current) drug therapy
CPT/HCPCS: 71045; 72128; 73030; 80053; 81003; 83690; 84484 ×2; 85025; 93005; 96374; 96375; 99284; J3010; 36415; J1885

== ENCOUNTER 2022-10-05 21:43 | Emergency (ER) | payer MEDICARE ==
[~2022-10-05 21:43] MED LIST: Iopamidol 370 76% 100 ML VIAL ONE
[2022-10-05 23:14] LABS: #Eosinphils 0.1 thou/uL (0.0-0.7); #Lymphocytes 0.7 thou/uL (1.20-3.40); #Monocytes 0.2 thou/uL (0.11-0.59); #Neutrophils 6.7 thou/uL (1.40-6.50); %Basophils 0.1 % (0.0-1.0); %Eosinophils 1.1 % (0.0-10.0); %Lymphocytes 9.4 % (21.0-51.0); %Monocytes 2.6 % (0.0-10.0); %Neutrophils 86.7 % (42.0-75.0); Mean Corpuscular HGB CONC 33.3 g/dL (32.0-36.0); Mean Corpuscular Hemoglobin 28.4 pg (27.0-31.0); Mean Corpuscular Volume 85.3 fl (78.0-98.0); Mean Platelet Volume 6.9 fL (7.4-10.4); Platelet Count 177 10x3/uL (130-400); RBC Distribution Width 13.5 % (11.5-14.5); Red Blood Cell (RBC) Count 4.92 mill/uL (4.20-5.40); White Blood Cell (WBC) Count 7.7 10x3/uL (4.8-10.8)
[2022-10-05 23:30] LABS: ALT (SGPT) 26 U/L (8-55); AST (SGOT) 24 U/L (5-34); Albumin 4.2 g/dL (3.4-4.8); Alkaline Phosphatase 88 U/L (40-110); Anion Gap 13 mmol/L (10-20); BUN (Urea Nitrogen) 21 mg/dL (9.8-20.1); Bilirubin, Total 0.6 mg/dL (0.2-1.2); CK (CPK) 29 U/L (29-168); Calc. Creatinine Clearance 0 mL/min (70-130); Calcium 9.6 mg/dL (7.8-10.44); Carbon Dioxide 25 mmol/L (23-31); Chloride 101 mmol/L (98-107); Estimated GFR 78; Globulin 3.4 g/dL (2.4-3.5); Glucose 160 mg/dL (80-115); Lipase 73 U/L (8-78); Potassium 4.3 mmol/L (3.5-5.1); Protein, Total 7.6 g/dL (5.8-8.1); Sodium 135 mmol/L (136-145)
[2022-10-05] MEDS ORDERED: Ondansetron PF 4 MG/2 ML Vial ONE (23:39)
[2022-10-05 23:46] LABS: Actual Bicarbonate (HCO3v) 22.3 mEq/L (22-28); Base Excess -2.9 mEq/L (-2.0 to +3.0); Calcium, Ionized (venous) 1.09 mmol/L (1.16-1.32); Chloride (VBG) 100 mmol/L (98-106); Hematocrit-VBG 44 % (36.0-47.0); Hemoglobin (Hb) 14.8 g/dL (11.7-16.1); Potassium (VBG) 4.35 mmol/L (3.70-5.30); pH (venous) 7.358 (7.32-7.43)
[2022-10-05 23:49] LABS: Bilirubin Negative (Negative); Blood, Urine Negative (Negative); Clarity Clear (Clear); Glucose, Urine (Dipstick) Normal (Negative); Ketone, Urine Negative (Negative); Leukocyte Negative Leu/uL (Negative); Nitrite Negative (Negative); Protein, Urine (Dipstick) 20 mg/dL (Neg-Trace); Specific Gravity, Urine 1.025 (1.002-1.036); Urobilinogen Normal mg/dL (Less than 2); pH, Urine 5.5 (5.0-9.0)
[2022-10-06] MEDS ORDERED: Morphine 4 MG/ML VIAL ONE (00:01)
[2022-10-06] MEDS ORDERED: Acetaminophen 500 MG TAB ONE (00:02)
[2022-10-06 00:59] LABS: SARS-CoV-2 NAA Rapid Test Not Detected (NotDetected)
== END 2022-10-06 02:31 | disposition home or self-care (01) ==
LOC: ERS 21:43
DX: R11.2 Nausea with vomiting, unspecified (principal); R19.7 Diarrhea, unspecified; E11.9 Type 2 diabetes mellitus without complications; I10 Essential (primary) hypertension; Z79.84 Long term (current) use of oral hypoglycemic drugs
CPT/HCPCS: 0240U; 71045; 74177; 80053; 81003; 82010; 82550; 82805; 83605; 83690; 84484; 85025; 87040; 87086; 93005; 96374; 99284; 36415; J2270; J2405; Q9967

== ENCOUNTER 2023-01-26 10:25 | Emergency (ER) | payer MEDICARE ==
[2023-01-26] MEDS ORDERED: Acetaminophen 500 MG TAB ONE (13:32)
== END 2023-01-26 15:59 | disposition home or self-care (01) ==
LOC: ERS 10:25
DX: M17.11 Unilateral primary osteoarthritis, right knee (principal); E11.9 Type 2 diabetes mellitus without complications; I10 Essential (primary) hypertension

== ENCOUNTER 2023-03-12 09:03 | Outpatient (CLI) | payer MEDICARE | END 2023-03-12 09:04 | disposition home or self-care (01) | LOC: BICMAMMO 09:03 | PROVIDERS: ATTEND Family Medicine | DX: Z12.31 Encounter for screening mammogram for malignant neoplasm of breast (principal); Z78.0 Asymptomatic menopausal state | CPT/HCPCS: 77063; 77067; 77080 ==

== ENCOUNTER 2023-04-19 15:52 | Emergency (ER) | payer MEDICARE ==
[2023-04-19] MEDS ORDERED: Acetaminophen 500 MG TAB ONE (17:32)
[2023-04-19 17:42] LABS: #Eosinphils 0.3 thou/uL (0.0-0.7); #Monocytes 0.4 thou/uL (0.11-0.59); #Neutrophils 5.6 thou/uL (1.40-6.50); %Basophils 0.4 % (0.0-1.0); %Eosinophils 2.8 % (0.0-10.0); %Lymphocytes 29.9 % (21.0-51.0); %Monocytes 4.7 % (0.0-10.0); Hematocrit 37.2 % (36.0-47.0); Hemoglobin 12.1 g/dL (12.0-16.0); Mean Corpuscular HGB CONC 32.5 g/dL (32.0-36.0); Mean Corpuscular Hemoglobin 27.2 pg (27.0-31.0); Mean Corpuscular Volume 83.6 fl (78.0-98.0); Mean Platelet Volume 8.7 fL (7.4-10.4); Platelet Count 189 10x3/uL (130-400); RBC Distribution Width 13.6 % (11.5-14.5); Red Blood Cell (RBC) Count 4.45 mill/uL (4.20-5.40); White Blood Cell (WBC) Count 9.1 10x3/uL (4.8-10.8)
[2023-04-19 18:16] LABS: ALT (SGPT) 20 U/L (8-55); AST (SGOT) 19 U/L (5-34); Albumin 4.1 g/dL (3.4-4.8); Alkaline Phosphatase 92 U/L (40-110); Anion Gap 15 mmol/L (10-20); BUN (Urea Nitrogen) 13 mg/dL (9.8-20.1); Bilirubin, Total 0.3 mg/dL (0.2-1.2); Calc. Creatinine Clearance 0 mL/min (70-130); Carbon Dioxide 24 mmol/L (23-31); Chloride 103 mmol/L (98-107); Estimated GFR 94; Globulin 3.1 g/dL (2.4-3.5); Glucose 127 mg/dL (80-115); Potassium 4.1 mmol/L (3.5-5.1); Protein, Total 7.2 g/dL (5.8-8.1); Sodium 138 mmol/L (136-145)
[2023-04-19 18:18] LABS: Troponin I Less than 0.010 ng/mL (< 0.028)
[2023-04-19] MEDS ORDERED: Ipratropium/Albuterol 3 ML NEB ONE (18:36)
[2023-04-19 19:22] LABS: SARS-CoV-2 NAA Rapid Test Not Detected (NotDetected)
== END 2023-04-19 20:22 | disposition home or self-care (01) ==
LOC: ERS 15:52
DX: J20.9 Acute bronchitis, unspecified (principal); R05.9 Cough, unspecified; E11.9 Type 2 diabetes mellitus without complications; I10 Essential (primary) hypertension; Z79.84 Long term (current) use of oral hypoglycemic drugs; Z79.82 Long term (current) use of aspirin
CPT/HCPCS: 0240U; 71045; 80053; 84484; 85025; 93005; 94640; 99284; 36415; J7620

== ENCOUNTER 2023-06-24 08:27 | Emergency (ER) | payer MEDICARE ==
[2023-06-24 10:16] LABS: SARS-CoV-2 NAA Rapid Test Not Detected (NotDetected)
== END 2023-06-24 10:33 | disposition home or self-care (01) ==
LOC: ERS 08:27
DX: J06.9 Acute upper respiratory infection, unspecified (principal); E11.9 Type 2 diabetes mellitus without complications; I10 Essential (primary) hypertension; Z79.82 Long term (current) use of aspirin; Z79.899 Other long term (current) drug therapy; Z79.84 Long term (current) use of oral hypoglycemic drugs
CPT/HCPCS: 0240U; 71045

== ENCOUNTER 2023-09-29 18:35 | Emergency (ER) | payer MEDICARE, OTHER ==
[2023-09-29 19:35] LABS: Bacteria/HPF None Seen HPF (None Seen); Bilirubin Negative (Negative); Blood, Urine Negative (Negative); CAUTI Indications for Culture Dysuria,urgency,freq; Clarity Clear (Clear); Glucose, Urine (Dipstick) Normal (Negative); Ketone, Urine Negative (Negative); Leukocyte Negative Leu/uL (Negative); Nitrite Negative (Negative); Protein, Urine (Dipstick) Negative (Neg-Trace); RBC/HPF None Seen HPF (0-3); Specific Gravity, Urine 1.018 (1.002-1.036); Squamous Epithelial 0-3 HPF (0-3); WBC/HPF 0-3 HPF (0-3); pH, Urine 5.5 (5.0-9.0)
[2023-09-29] MEDS ORDERED: Ondansetron PF 4 MG/2 ML Vial ONE (19:40)
[2023-09-29] MEDS ORDERED: Pantoprazole 40 MG VIAL ONE (19:40)
[2023-09-29 19:43] LABS: Urine Culture Reflex No No
[2023-09-29 20:09] LABS: #Basophils Less than 0.03 10x3/uL (0.0-0.2); %Basophils 0.2 % (0.0-1.0); %Eosinophils 1.2 % (0.0-10.0); %Neutrophils 71.1 % (42.0-75.0); Hematocrit 37.9 % (36.0-47.0); Hemoglobin 12.4 g/dL (12.0-16.0); Mean Corpuscular HGB CONC 32.7 g/dL (32.0-36.0); Mean Corpuscular Hemoglobin 27.2 pg (27.0-31.0); Mean Corpuscular Volume 83.1 fL (78.0-98.0); Mean Platelet Volume 8.9 fL (7.4-10.4); Platelet Count 189 10x3/uL (130-400); RBC Distribution Width 13.9 % (11.5-14.5); Red Blood Cell (RBC) Count 4.56 mill/uL (4.20-5.40)
[2023-09-29 20:30] LABS: Globulin 3.4 g/dL (2.4-3.5)
[2023-09-29 20:34] LABS: ALT (SGPT) 97 U/L (8-55); AST (SGOT) 78 U/L (5-34); Albumin 3.7 g/dL (3.4-4.8); Alkaline Phosphatase 100 U/L (40-110); Anion Gap 14 mmol/L (10-20); BUN (Urea Nitrogen) 30 mg/dL (9.8-20.1); Bilirubin, Total 0.4 mg/dL (0.2-1.2); Calc. Creatinine Clearance 0 mL/min (70-130); Calcium 9.4 mg/dL (7.8-10.44); Carbon Dioxide 21 mmol/L (23-31); Chloride 102 mmol/L (98-107); Estimated GFR 79; Glucose 162 mg/dL (80-115); Potassium 3.9 mmol/L (3.5-5.1); Protein, Total 7.1 g/dL (5.8-8.1); Sodium 133 mmol/L (136-145)
[2023-09-29 20:37] LABS: Troponin I Less than 0.010 ng/mL (< 0.028)
== END 2023-09-29 21:07 | disposition home or self-care (01) ==
LOC: ERS 18:35
DX: K29.70 Gastritis, unspecified, without bleeding (principal); R11.2 Nausea with vomiting, unspecified; E11.9 Type 2 diabetes mellitus without complications; I10 Essential (primary) hypertension; Z79.899 Other long term (current) drug therapy; Z79.84 Long term (current) use of oral hypoglycemic drugs
CPT/HCPCS: 36415; 71045; 80053; 81001; 83880; 84484; 85025; 93005; 96361; 96374; 96375; C9113; J2405

== ENCOUNTER 2023-11-30 17:54 | Emergency (ER) | payer OTHER | END 2023-11-30 20:31 | disposition home or self-care (01) | LOC: ERS 17:54 | DX: M54.12 Radiculopathy, cervical region (principal); E11.9 Type 2 diabetes mellitus without complications; I10 Essential (primary) hypertension; Z79.899 Other long term (current) drug therapy; Z79.84 Long term (current) use of oral hypoglycemic drugs | CPT/HCPCS: 71045; 80053; 83690; 84484; 85025; 93005; 96374; 96375; J1100; J1885; J3010 ==

== ENCOUNTER 2023-12-16 12:40 | Inpatient (IN) | payer MEDICARE, OTHER ==
[2023-12-16 13:19] LABS: #Basophils Less than 0.03 10x3/uL (0.0-0.2); %Basophils 0.2 % (0.0-1.0); %Eosinophils 2.1 % (0.0-10.0); %Lymphocytes 20.7 % (21.0-51.0); %Monocytes 4.3 % (0.0-10.0); %Neutrophils 72.2 % (42.0-75.0); Hematocrit 37.1 % (36.0-47.0); Hemoglobin 12.6 g/dL (12.0-16.0); Mean Corpuscular Hemoglobin 28.1 pg (27.0-31.0); Mean Corpuscular Volume 82.8 fL (78.0-98.0); Mean Platelet Volume 8.9 fL (7.4-10.4); Platelet Count 200 10x3/uL (130-400); RBC Distribution Width 14.2 % (11.5-14.5); Red Blood Cell (RBC) Count 4.48 mill/uL (4.20-5.40)
[2023-12-16] MEDS ORDERED: Aspirin Chewable 81 MG TAB ONE (13:20)
[2023-12-16 13:38] LABS: Troponin I Less than 0.010 ng/mL (< 0.028)
[2023-12-16 14:04] LABS: ALT (SGPT) 71 U/L (8-55); AST (SGOT) 41 U/L (5-34); Albumin 3.6 g/dL (3.4-4.8); Alkaline Phosphatase 156 U/L (40-110); Anion Gap 14 mmol/L (10-20); BUN (Urea Nitrogen) 15 mg/dL (9.8-20.1); Bilirubin, Total 0.4 mg/dL (0.2-1.2); Calc. Creatinine Clearance 0 mL/min (70-130); Calcium 9.4 mg/dL (7.8-10.44); Carbon Dioxide 24 mmol/L (23-31); Chloride 102 mmol/L (98-107); Estimated GFR 59; Globulin 3.8 g/dL (2.4-3.5); Glucose 484 mg/dL (80-115); Potassium 4.1 mmol/L (3.5-5.1); Protein, Total 7.4 g/dL (5.8-8.1); Sodium 136 mmol/L (136-145)
[2023-12-16 14:29] LABS: CK (CPK) 33 U/L (29-168); Magnesium 1.5 mg/dL (1.6-2.6)
[2023-12-16 15:12] LABS: Bacteria/HPF None Seen HPF (None Seen); Bilirubin Negative (Negative); Blood, Urine Negative (Negative); CAUTI Indications for Culture Dysuria,urgency,freq; Clarity Clear (Clear); Glucose, Urine (Dipstick) Greater than 1000 mg/dL (Negative); Ketone, Urine Negative (Negative); Leukocyte Negative Leu/uL (Negative); Nitrite Negative (Negative); Protein, Urine (Dipstick) Negative (Neg-Trace); RBC/HPF 0-3 HPF (0-3); Specific Gravity, Urine 1.018 (1.002-1.036); Squamous Epithelial None Seen HPF (0-3); Urobilinogen Normal mg/dL (Less than 2); WBC/HPF 0-3 HPF (0-3); pH, Urine 6.5 (5.0-9.0)
[2023-12-16 15:20] LABS: Urine Culture Reflex No No
[2023-12-16] MEDS ORDERED: Magnesium 2 GM/50 ML BAG (IN WATER) ONE (15:29)
[2023-12-16] MEDS ORDERED: Dextrose 5% in Water 1,000 ML IV PRN (16:19)
[2023-12-16] MEDS ORDERED: Glucagon 1 MG/ML KIT IM PRN (16:19)
[2023-12-16] MEDS ORDERED: Dextrose 50% Abboject 50 ML SYRINGE SLOW IVP PRN (16:19)
[2023-12-16] MEDS ORDERED: Ondansetron ODT 4 MG TAB PO PRN (16:21)
[2023-12-16] MEDS ORDERED: Ondansetron PF 4 MG/2 ML Vial IVP PRN (16:21)
[2023-12-16] MEDS ORDERED: Acetaminophen 325 MG TAB ONE ×2 (17:00→22:49)
[2023-12-16] MEDS: Acetaminophen 325 MG TAB PO SCH (17:02)
[2023-12-16] MEDS ORDERED: Cefepime 2 GM VIAL ONE (17:20)
[2023-12-16] MEDS ORDERED: Sodium Chloride 0.9% 100 ML ONE ×2 (17:20→22:50)
[2023-12-16] MEDS ORDERED: Lisinopril 20 MG TAB ONE (18:07)
[2023-12-16] MEDS: Lisinopril 20 MG TAB PO SCH (18:21)
[2023-12-16] MEDS ORDERED: HumaLOG 300 UNITS/3 ML VIAL ONE (18:26)
[2023-12-16] MEDS: HumaLOG 300 UNITS/3 ML VIAL SC PRN (18:30)
[2023-12-16] MEDS: Vancomycin (BATCH) 2.5 GM in Premix 1 BAG IVPB SCH (18:54)
[2023-12-16 18:55] LABS: Troponin I Less than 0.010 ng/mL (< 0.028)
[2023-12-16 21:12] LABS: Magnesium 1.8 mg/dL (1.6-2.6)
[2023-12-16] MEDS ORDERED: Gabapentin 300 MG CAP ONE (22:49)
[2023-12-16] MEDS ORDERED: Famotidine 20 MG TAB ONE (22:49)
[2023-12-16] MEDS ORDERED: Doxycycline 100 MG VIAL ONE (22:49)
[2023-12-16] MEDS: Famotidine 20 MG TAB PO SCH (23:00)
[2023-12-16] MEDS: Gabapentin 300 MG CAP PO SCH (23:01)
[2023-12-16] MEDS: Doxycycline 100 MG in Sodium Chloride 0.9% 100 ML IVPB SCH (23:47)
[2023-12-17] MEDS: hydrALAZINE 20 MG/ML VIAL SLOW IVP PRN (00:51)
[2023-12-17 02:22] VITALS: BMI 42.4
[2023-12-17] MEDS: cefTRIAXone\\ROCEPHIN 1 GM in Sodium Chloride 0.9% 100 ML IVPB SCH (04:26)
[2023-12-17 04:52] LABS: #Basophils Less than 0.03 10x3/uL (0.0-0.2); %Basophils 0.2 % (0.0-1.0); %Eosinophils 3.6 % (0.0-10.0); %Lymphocytes 31.1 % (21.0-51.0); %Monocytes 7.1 % (0.0-10.0); %Neutrophils 57.4 % (42.0-75.0); Hematocrit 32.4 % (36.0-47.0); Hemoglobin 10.6 g/dL (12.0-16.0); Mean Corpuscular HGB CONC 32.7 g/dL (32.0-36.0); Mean Corpuscular Hemoglobin 26.9 pg (27.0-31.0); Mean Corpuscular Volume 82.2 fL (78.0-98.0); Mean Platelet Volume 8.9 fL (7.4-10.4); Platelet Count 167 10x3/uL (130-400); RBC Distribution Width 14.3 % (11.5-14.5); Red Blood Cell (RBC) Count 3.94 mill/uL (4.20-5.40)
[2023-12-17 05:23] LABS: ALT (SGPT) 56 U/L (8-55); AST (SGOT) 30 U/L (5-34); Alkaline Phosphatase 100 U/L (40-110); Anion Gap 12 mmol/L (10-20); BUN (Urea Nitrogen) 12 mg/dL (9.8-20.1); Bilirubin, Total 0.4 mg/dL (0.2-1.2); Calc. Creatinine Clearance 135 mL/min (70-130); Calcium 8.7 mg/dL (7.8-10.44); Carbon Dioxide 22 mmol/L (23-31); Chloride 107 mmol/L (98-107); Estimated GFR 88; Globulin 2.9 g/dL (2.4-3.5); Glucose 272 mg/dL (80-115); Protein, Total 5.9 g/dL (5.8-8.1); Sodium 137 mmol/L (136-145)
[2023-12-17] MEDS: Enoxaparin 40 MG (0.4 mL) SYRINGE SC SCH (11:29)
[2023-12-17] MEDS: Lisinopril 20 MG TAB PO SCH (11:31)
[2023-12-17] MEDS: Atorvastatin Calcium 40 MG TAB PO SCH (11:32)
[2023-12-17] MEDS: Amlodipine 5 MG TAB PO SCH (11:33)
[2023-12-17] MEDS ORDERED: Ketorolac Tromethamine 30 MG (1 mL) VIAL IVP SCH (17:15)
[2023-12-17] MEDS: Ketorolac Tromethamine 30 MG (1 mL) VIAL IVP SCH (17:45)
[2023-12-17] MEDS: Insulin Glargine 30 UNITS/0.3 ML VIAL SC SCH (17:49)
[2023-12-17] MEDS: HumaLOG 300 UNITS/3 ML VIAL SC PRN (21:16)
[2023-12-18] MEDS: Insulin Glargine 30 UNITS/0.3 ML VIAL SC SCH ×2 (10:05→14:12)
[2023-12-18 16:02] LABS: #Basophils Less than 0.03 10x3/uL (0.0-0.2); %Basophils 0.5 % (0.0-1.0); %Lymphocytes 28.5 % (21.0-51.0); %Neutrophils 58.3 % (42.0-75.0); Hematocrit 33.5 % (36.0-47.0); Mean Corpuscular HGB CONC 32.8 g/dL (32.0-36.0); Mean Corpuscular Hemoglobin 27.2 pg (27.0-31.0); Mean Corpuscular Volume 82.7 fL (78.0-98.0); Mean Platelet Volume 8.6 fL (7.4-10.4); Platelet Count 154 10x3/uL (130-400); RBC Distribution Width 14.5 % (11.5-14.5); Red Blood Cell (RBC) Count 4.05 mill/uL (4.20-5.40)
[2023-12-18 16:20] LABS: Anion Gap 11 mmol/L (10-20); BUN (Urea Nitrogen) 14 mg/dL (9.8-20.1); Calc. Creatinine Clearance 119 mL/min (70-130); Carbon Dioxide 24 mmol/L (23-31); Chloride 104 mmol/L (98-107); Estimated GFR 76; Glucose 203 mg/dL (80-115); Potassium 4.2 mmol/L (3.5-5.1); Sodium 135 mmol/L (136-145)
[2023-12-18] MEDS: Amlodipine 5 MG TAB PO SCH (16:57)
[2023-12-18] MEDS: Insulin Lispro 100 UNIT/ML 10 ML VIAL SC PRN (21:14)
[2023-12-19] MEDS: Insulin Lispro 100 UNIT/ML 10 ML VIAL SC PRN (05:56)
[2023-12-19] MEDS: Amlodipine 10 MG TAB PO SCH (09:27)
[2023-12-19 12:58] VITALS: BP 133/75; TEMP 97.8
== END 2023-12-19 13:30 | disposition home or self-care (01) | DRG 603 ==
LOC: ERS 12:40 → ERHOLD 16:19 → 2SE 12-17 00:13 → OBSVTOIN 12-17 14:13
PROVIDERS: ADMIT Internal Medicine; ATTEND Internal Medicine
DX: L03.116 Cellulitis of left lower limb (principal); Z68.41 Body mass index [BMI] 40.0-44.9, adult; E11.9 Type 2 diabetes mellitus without complications; R00.0 Tachycardia, unspecified; I10 Essential (primary) hypertension; E78.5 Hyperlipidemia, unspecified; Z79.4 Long term (current) use of insulin; Z88.8 Allergy status to other drugs, medicaments and biological substances; Z79.84 Long term (current) use of oral hypoglycemic drugs; Z79.899 Other long term (current) drug therapy; E83.42 Hypomagnesemia; E11.40 Type 2 diabetes mellitus with diabetic neuropathy, unspecified; E66.9 Obesity, unspecified; I49.3 Ventricular premature depolarization
CPT/HCPCS: 36415; 36416; 71045; 71275; 80048; 80053; 81001; 82550; 83605; 83735; 83880; 84145; 84484; 85025; 87040; 93005; 93306; 96365; 96366; 96367; 96372; 96375; 96376; G0378; J0360; J0692; J0696; J1650; J1815; J1885; J3370; J3475; J3490

== ENCOUNTER 2024-03-23 05:35 | Emergency (ER) | payer MEDICARE ==
[2024-03-23] MEDS ORDERED: Ondansetron PF 4 MG/2 ML Vial ONE (06:13)
[2024-03-23 06:23] LABS: #Basophils Less than 0.03 10x3/uL (0.0-0.2); %Basophils 0.1 % (0.0-1.0); %Eosinophils 0.4 % (0.0-10.0); %Lymphocytes 6.5 % (21.0-51.0); %Monocytes 1.6 % (0.0-10.0); %Neutrophils 91.1 % (42.0-75.0); Hematocrit 37.4 % (36.0-47.0); Hemoglobin 12.6 g/dL (12.0-16.0); Mean Corpuscular HGB CONC 33.7 g/dL (32.0-36.0); Mean Corpuscular Hemoglobin 27.5 pg (27.0-31.0); Mean Corpuscular Volume 81.7 fL (78.0-98.0); Mean Platelet Volume 9.4 fL (7.4-10.4); Platelet Count 203 10x3/uL (130-400); RBC Distribution Width 13.9 % (11.5-14.5); Red Blood Cell (RBC) Count 4.58 mill/uL (4.20-5.40)
[2024-03-23 06:40] LABS: Troponin I Less than 0.010 ng/mL (< 0.028)
[2024-03-23 06:42] LABS: ALT (SGPT) 68 U/L (8-55); AST (SGOT) 53 U/L (5-34); Albumin 3.6 g/dL (3.4-4.8); Alkaline Phosphatase 102 U/L (40-110); Anion Gap 15 mmol/L (10-20); BUN (Urea Nitrogen) 20 mg/dL (9.8-20.1); Bilirubin, Total 0.7 mg/dL (0.2-1.2); Calc. Creatinine Clearance 0 mL/min (70-130); Calcium 9.1 mg/dL (7.8-10.44); Carbon Dioxide 20 mmol/L (23-31); Chloride 105 mmol/L (98-107); Estimated GFR 80; Globulin 3.5 g/dL (2.4-3.5); Glucose 224 mg/dL (80-115); Lipase 21 U/L (8-78); Magnesium 1.6 mg/dL (1.6-2.6); Potassium 3.8 mmol/L (3.5-5.1); Protein, Total 7.1 g/dL (5.8-8.1); Sodium 136 mmol/L (136-145)
[2024-03-23 08:43] LABS: Bacteria/HPF None Seen HPF (None Seen); Bilirubin Negative (Negative); Blood, Urine Negative (Negative); CAUTI Indications for Culture Pelvic or flank pain; Clarity Clear (Clear); Glucose, Urine (Dipstick) Normal (Negative); Ketone, Urine Negative (Negative); Leukocyte Negative Leu/uL (Negative); Nitrite Negative (Negative); Protein, Urine (Dipstick) 100 mg/dL (Neg-Trace); RBC/HPF 0-3 HPF (0-3); Specific Gravity, Urine 1.025 (1.002-1.036); Squamous Epithelial 0-3 HPF (0-3); WBC/HPF None Seen HPF (0-3)
[2024-03-23 08:57] LABS: Urine Culture Reflex No No
[2024-03-23 09:50] LABS: Lactic Acid 1.52 mmol/L (0.5-2.2)
[2024-03-23] MEDS ORDERED: Promethazine HCl 25 MG/ML VIAL ONE (10:24)
[2024-03-23] MEDS ORDERED: Iopamidol-370 76% 500 ML MDV (1 ML CHARGE) ONE (10:33)
[2024-03-23] MEDS ORDERED: Ketorolac Tromethamine 30 MG (1 mL) VIAL ONE (11:04)
== END 2024-03-23 12:00 | disposition home or self-care (01) ==
LOC: ERS 05:35
DX: R11.2 Nausea with vomiting, unspecified (principal); R51.9 Headache, unspecified; R06.02 Shortness of breath; E11.9 Type 2 diabetes mellitus without complications; I10 Essential (primary) hypertension; Z79.84 Long term (current) use of oral hypoglycemic drugs; Z79.82 Long term (current) use of aspirin; Z79.899 Other long term (current) drug therapy
CPT/HCPCS: 71275; 80053; 81001; 83605; 83690; 83735; 83880; 84484; 85025; 85379; 87428; 93005; 96361; 96365; 96375; 99284; J1885; J2405; J2550; Q9967; 36415

== ENCOUNTER 2025-05-21 09:55 | Emergency (ER) | payer MEDICARE ==
[2025-05-21] MEDS ORDERED: Acetaminophen 325 MG TAB ONE (12:22)
[2025-05-21] MEDS ORDERED: Orphenadrine Citrate 60 MG/2 ML VIAL ONE (12:23)
== END 2025-05-21 13:26 | disposition home or self-care (01) ==
LOC: ERS 09:55
DX: M54.2 Cervicalgia (principal); M62.838 Other muscle spasm; E11.9 Type 2 diabetes mellitus without complications; I10 Essential (primary) hypertension; Z79.84 Long term (current) use of oral hypoglycemic drugs; Z79.899 Other long term (current) drug therapy
CPT/HCPCS: 70450; 72125; J2360; 96372